=== PATIENT | male | born 1965 | race Caucasian/White ===

== ENCOUNTER → 2023-04-14 | Outpatient (REF) | payer OTHER ==
[2023-04-16 19:07] LABS: TESTOSTERONE FREE (DIRECT) 12.5 pg/mL (7.2-24.0)
== END ==
LOC: M SFHCCLAY 17:11
PROVIDERS: ATTEND Family Medicine
DX: D86.0 Sarcoidosis of lung (principal)

== ENCOUNTER → 2023-07-11 | Outpatient (CLI) | payer OTHER ==
[~2023-07-11] MED LIST: ISOVUE-370 76% 100ML VIAL As Ordered ONE
== END ==
LOC: M RAD 14:37
PROVIDERS: ATTEND Family Medicine
DX: D86.0 Sarcoidosis of lung (principal)
CPT/HCPCS: 71260; Q9967

== ENCOUNTER → 2023-10-25 | Outpatient (REF) | payer OTHER ==
[2023-10-25 18:30] LABS: BASO # 0.1 10^3/uL (0.0-0.2); BASO % 0.6 % (0.0-1.0); EOS # 0.2 10^3/uL (0.0-0.5); EOS % 2.9 % (0.0-3.0); HEMATOCRIT 48.5 % (42.0-52.0); HEMOGLOBIN 16.2 g/dl (13.5-17.5); LYMPH % 25.2 % (24.0-44.0); MEAN CORPUSCULAR HEMOGLOBIN 31.4 pg (27.0-33.0); MEAN CORPUSCULAR HGB CONC 33.4 g/dl (32.0-36.5); MONO # 0.8 10^3/uL (0.0-0.8); MONO % 9.6 % (2.0-8.0); NEUTROPHILS # 4.9 10^3/uL (1.5-8.5); NEUTROPHILS % 61.4 % (36.0-66.0); PLATELET COUNT, AUTOMATED 285 10^3/uL (150-450); RED BLOOD COUNT 5.16 10^6/uL (4.30-6.10)
[2023-10-25 18:49] LABS: HEMOGLOBIN A1c 4.8 % (4.0-6.0)
[2023-10-25 18:59] LABS: ALBUMIN 4.2 G/DL (3.2-5.2); ALKALINE PHOSPHATASE 93 U/L (46-116); ALT/SGPT 18 U/L (7.0-40); AST/SGOT 16 U/L (<34); BILIRUBIN,TOTAL 0.5 MG/DL (0.3-1.2); BLOOD UREA NITROGEN 23 MG/DL (9-23); CALCIUM LEVEL 9.4 MG/DL (8.5-10.1); CARBON DIOXIDE LEVEL 30 MMOL/L (20-31); CHLORIDE LEVEL 106 MMOL/L (98-107); CHOLESTEROL LEVEL 240 MG/DL (<200); CREATININE FOR GFR 0.91 MG/DL (0.70-1.30); GLOMERULAR FILTRATION RATE > 60.0 (>56); GLUCOSE, FASTING 88 MG/DL (60-100); HDL CHOLESTEROL 66.5 MG/DL (>40); LDL CHOLESTEROL 150.3 MG/DL (<100); NON-HDL-C 173.5 MG/DL; POTASSIUM SERUM 5.2 MMOL/L (3.5-5.1); SODIUM LEVEL 137 MMOL/L (136-145); TRIGLYCERIDES LEVEL 116 MG/DL (<150)
[2023-10-25 19:00] LABS: THYROID STIMULATING HORMONE 2.027 uIU/ML (0.55-4.78)
== END ==
LOC: M SFHCCLAY 09:57
PROVIDERS: ATTEND Physician Assistant
DX: I10 Essential (primary) hypertension (principal); Z68.41 Body mass index [BMI] 40.0-44.9, adult; E78.00 Pure hypercholesterolemia, unspecified

== ENCOUNTER 2023-11-10 07:43 | Emergency (ER) | payer OTHER ==
[~2023-11-10] VITALS: Ht 170.2 cm; Wt 115.7 kg
[2023-11-10] MEDS ORDERED: NAPR-885 (07:53)
[2023-11-10] MEDS ORDERED: ALPR0.5T3 (07:53)
[2023-11-10] MEDS ORDERED: NAPR-885 PO (10:38)
[2023-11-10 10:45] VITALS: BP 143/77; TEMP 97.8; O2SAT 100
== END 2023-11-10 10:46 | disposition home or self-care (01) ==
LOC: M ED 07:43
DX: S46.211A Strain of muscle, fascia and tendon of other parts of biceps, right arm, initial encounter (principal); X50.0XXA Overexertion from strenuous movement or load, initial encounter; M54.50 Low back pain, unspecified; M19.90 Unspecified osteoarthritis, unspecified site; Z88.0 Allergy status to penicillin; Z88.2 Allergy status to sulfonamides; Y92.009 Unspecified place in unspecified non-institutional (private) residence as the place of occurrence of the external cause; Y93.9 Activity, unspecified; Y99.9 Unspecified external cause status; Z79.1 Long term (current) use of non-steroidal anti-inflammatories (NSAID); Z79.899 Other long term (current) drug therapy